=== PATIENT | female | born 1980 | race Hispanic/Latino ===

== ENCOUNTER 2017-04-21 09:28 | Emergency (ER) | payer MEDICAID ==
--- NOTE | 2017-04-21 13:03 | OBHP ---
Datetime: 04/21/2017 10:59 IP Adm Impression: Term, intrauterine ; No Active Labor IP Chief Complaint Other: Passing of mucuous plug IP Admit Plan: Discharge home Admit Comment, IP Provider: 37 yo female at 37 weeks 3 days gestation by U/S at 7 weeks and SOBIA 05/16 presents with complaints of passing a mucuous-type fluid at 6am this morning which concerned h er for membrane rupture. She reports good movement. Denies contractions, vaginal bleeding, or v aginal gushing of fluid. PNC: Seen by Dr. Salazar with a total of 6 visits throughout her . 34lb weight gain dur ing this , reports having an uncomplicated course. GBs status- pending, scheduled f or appt tomorrow to find out results. PNC labs unremarkable Obstretical Hx: x3, all full term, denies or complications. Denies gestati onal diabetes, preeclampsia, hemorrhage or infection in past pregnancies. Delivery Representative Hx: Pap smear normal (08/26/16) Medical Hx: No chronic illness Surgical Hx: Lap Band surgery (2009), Inner thigh plasty 2014 Social hx: Denies smoking, alcohol, or drug use Rx meds: PNV Allergies: Sufa drugs (rash) ROS: denies CP, SOB, N/V/D/Headache/Dizziness/Burning with urination Triage Vitals: BP 122/65, Afebrile General: Patient seen lying in bed comfortably; NAD HEENT: no facial edema, pallor, jaundice CV: RRR, Normal S1, S2, No murmurs Extremities: Non pitting edema up to knees, Hoffmans negative, no calf tenderness Pulmonary: Clear to auscultation bilaterally; no wheezing Abdomen: Obese, gravid uterus, NT FHR: HR 150, moderate variability, accelerations present, no early, late, or variable decels (yaa gory I) Assessment and Plan: IUP at 37.2 weeks gestation presenting with passage of minimal mucusal type discharge, not in acti ve labor. Pt discharged, will follow up with Dr. Salazar on 04/25. Discussed case with Ob Attending Dr. Vera Harper, PGY1 OB hospitalist addendum: Patient seen and examined by me. Agree with above assessment and plan Labor precautions Pelvic Type - PN: Adequate Extremities - PN: Normal Abdomen - PN: Normal Back - PN: Normal Breast - PN: Normal Lungs - PN: Normal Heart - PN: Normal Thyroid - PN: Normal Neurologic - PN: Normal HEENT - PN: Normal General - PN: Normal FHR - Baseline A Provider: 159 Pool Provider: Negative EGA AdmitDate IP: 37.3 Vital Signs Provider: Reviewed IP Chief Complaint: Suspected ruptured membranes NICHD Variability Prov Fetus A: Moderate 6-25bpm NICHD Accel Fetus A IP Provider: 15X15 FHR Category Provider Fetus A: Category I NICHD Decel Fetus A IP Provider: None Dilatation, Provider: 2 Genitourinary Exam: Normal DTRs - PN: Normal
[2017-04-21 14:54] VITALS: BP 108/59; PULSE 76; RESP 14; TEMP 98.4
== END 2017-04-21 10:30 | disposition home or self-care (01) ==
LOC: H.EROB2 09:28 → H.EROB 09:28 → H.EROB2 10:30
DX: O47.1 False labor at or after 37 completed weeks of gestation (principal); Z3A.37 37 weeks gestation of pregnancy

== ENCOUNTER 2017-04-29 06:37 | Inpatient (IN) | payer MEDICAID ==
[2017-04-29 07:57] VITALS: BMI 48.0
--- NOTE | 2017-04-29 08:41 | OBHP ---
Datetime: 04/29/2017 08:20 IP Adm Impression: Term, intrauterine IP Admit Plan: Observation/Evaluation Admit Comment, IP Provider: Patient is a @ 38.4 wks with suspected leaking of fluid, +FM, no contractions, no vaginal bleeding. 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 Patient evaluated, speculum showed no pooling, nitrazine negative. Pt 4/50/-3 on exam. Unsure if patient is ruptured - will order BPP to evaluate A FI and well being. Will continue monitoring for contractions, FHR = 160 mod brandon, Cat-I. Will re -evaluate Pelvic Type - PN: Adequate Extremities - PN: Normal Abdomen - PN: Normal Back - PN: Normal Breast - PN: Normal Lungs - PN: Normal Heart - PN: Normal Thyroid - PN: Normal Neurologic - PN: Normal HEENT - PN: Normal General - PN: Normal FHR - Baseline A Provider: 160 EGA AdmitDate IP: 38.4 Vital Signs Provider: Reviewed; Within Normal Limits IP Chief Complaint: Suspected ruptured membranes NICHD Variability Prov Fetus A: Moderate 6-25bpm NICHD Accel Fetus A IP Provider: 15X15 NICHD Decel Fetus A IP Provider: None Dilatation, Provider: 4 Effacement, Provider: 50 Station, Provider: -3 Genitourinary Exam: Normal DTRs - PN: Normal
--- NOTE | 2017-04-29 10:17 | US ---
PROCEDURE: Limited obstetrical ultrasound examination HISTORY: BPP, questionable rupture as well COMPARISON: Not available TECHNIQUE: Transabdominal FINDINGS: Limited obstetrical ultrasound examination was performed specifically for evaluation of biophysical profile. The examination demonstrates a single live intrauterine gestation in cephalic presentation. The heart rate is 153 beats per minute. A normal quantity of amniotic fluid is visualized. The amniotic fluid index is 14.3 cm. Normal anterior placenta is identified. The cervix could not be visualized at this time. The relationship of the placenta to cervix is not demonstrated at this time. biometry is not performed at this time. biophysical profile examination yields a score of 8 out of 8. IMPRESSION: Single live intrauterine gestation. Cephalic presentation. heart rate 153 beats per minute. age determination not made at this time at the request of the referring physician. Anterior placenta. Relationship of placenta to cervix not established at this time. Biophysical profile score 8 out of 8.
[2017-04-29] MEDS: Lactated Ringer's 1,000 ML IV SCH ×2 (12:30→20:30)
--- NOTE | 2017-04-29 14:43 | OBADHP ---
Datetime: 04/29/2017 08:20 Admit Comment, IP Provider: 37 y/u female at 38.6 weeks gestation confirmed by a 7 week U/S and consistent with LMP presents with loss of vaginal fluid at 6am this morning. Pt was concerned her me mbranes might of ruptured so she came to be evaluated. Denies contractions but reports mild lower abd ominal cramping that resolved spontaneously this morning. Denies vaginal bleeding. Reports good movement. PNC: Recieving care [place] with Dr. Salazar. PNC course and labs unremarkable. GBS status negative as per patient but no documentation to support this. Blood TYpe: B+ HIV neg RPR nonreactive G/C neg Rubella N/A Hep B neg Tdap N/A OBHx: 3 , term, no complications, 1 TOP, 1 SAB 1st trimester Medical Hx: None Surgical Hx: Inner Thigh Plasty, Liposuction, Lab band Meds: PNV Allergies: SULFA (rash) Social: Denies alcohol, smoking, or drugs Vitals: 125/76, HR 87, afebrile, Pain Scale=0 Physical Exam: General: NAD Cardiac: RRR, no murmurs Pulm: Clear to Auscultation BL Abdomen: Gravid, Non tender Extremities: +2-3 pitting edema up to knees, No calf tenderness Speculum: no pooling, Nitrazine negative FHR: 150's, moderate variability, accelerations, no deceleration Assessment: IUP at 38 weeks, uncomplicated , reporting loss of fluid. Patient not in active labor as she is not reporting contractions. Evaluate for ROM. -F/U BPP to assess JULIÁN Casper Harper PGY1 Addendum: Patient reexamined. Small amount of fluid seen from cervical os. Cervix 4-5 cm, 90% effaced, -1 st ation. Plan to admit patient for management of labor and delivery due to spontaneous rupture of membr anes. Plan discussed with patient and all patient questions answered. Pelvic Type - PN: Adequate Extremities - PN: Normal Abdomen - PN: Normal Back - PN: Normal Breast - PN: Normal Lungs - PN: Normal Heart - PN: Normal Thyroid - PN: Normal Neurologic - PN: Normal HEENT - PN: Normal General - PN: Normal FHR - Baseline A Provider: 160 Vital Signs Provider: Reviewed; Within Normal Limits IP Chief Complaint: Suspected ruptured membranes NICHD Variability Prov Fetus A: Moderate 6-25bpm NICHD Accel Fetus A IP Provider: 15X15 NICHD Decel Fetus A IP Provider: None Dilatation, Provider: 4 Effacement, Provider: 50 Station, Provider: -3 Genitourinary Exam: Normal DTRs - PN: Normal EGA AdmitDate IP: 38.4 IP Adm Impression: Term, intrauterine IP Admit Plan: Observation/Evaluation Datetime: 04/21/2017 10:59 IP Chief Complaint Other: Passing of mucuous plug Pool Provider: Negative FHR Category Provider Fetus A: Category I
[2017-04-29] MEDS ORDERED: Bupivacaine HCl 0.25% PF (10 ml) Inj ONE (15:46)
[2017-04-29] MEDS ORDERED: Fentanyl/Bupivacaine HCl 250 ML EPI ONE (15:46)
[2017-04-29 15:48] LABS: BASO # 0.1 K/uL (0.0-0.2); BASO % 0.5 % (0.0-2.0); EOS # 0.3 K/uL (0.0-0.7); EOS % 2.4 % (0.0-4.0); HEMATOCRIT 29.6 % (34.0-47.0); LYMPH # 1.5 K/uL (1.0-4.3); MEAN CELL VOLUME 89.2 fl (81.0-99.0); MEAN CORPUSCULAR HEMOGLOBIN 28.6 pg (27.0-31.0); MEAN PLATELET VOLUME 8.3 fl (7.2-11.7); MONO # 0.5 K/uL (0.0-0.8); MONO % 4.7 % (0.0-10.0); NEUT # 9.1 K/uL (1.8-7.0); NEUT % 79.4 % (50.0-75.0); NRBC % 0.1 % (0.0-0.0); RED CELL DISTRIBUTION WIDTH 14.1 % (11.5-14.5); WHITE BLOOD COUNT 11.5 K/uL (4.8-10.8)
[2017-04-29] MEDS ORDERED: Lidocaine 1% Inj (20ml) ONE (19:22)
--- NOTE | 2017-04-29 20:41 | OBPN ---
Datetime: 04/29/2017 20:37 IP Progress Impression: Normal progression of labor IP Informed Consent Obtain: Vaginal Delivery IP Procedures: Sterile Vag Exam IP Progress Plan: Continue present management; Augmentation Contraction Comments Provider: q2min FHR - Baseline A Provider: 140s IP Progress Note Comment: Patient comfortable status post epidural. Bulging fore bag, AROM light mec onium. Maternal well-being and being reassuring at this time. Continue current management. Vital Signs Provider: Reviewed; Within Normal Limits NICHD Accel Fetus A IP Provider: 15X15 FHR Category Provider Fetus A: Category I NICHD Variability Prov Fetus A: Moderate 6-25bpm Dilatation, Provider: 6 Effacement, Provider: 90 Station, Provider: 0 NICHD Decel Fetus A IP Provider: None Datetime: 04/21/2017 10:59 Pool Provider: Negative
[2017-04-29] MEDS ORDERED: Oxycodone/Acetaminophen 5/325 mg Tab PO PRN ×4 (23:06→23:16)
[2017-04-30 06:08] LABS: BASO # 0.1 K/uL (0.0-0.2); BASO % 0.4 % (0.0-2.0); EOS # 0.3 K/uL (0.0-0.7); EOS % 2.3 % (0.0-4.0); HEMATOCRIT 25.8 % (34.0-47.0); LYMPH # 1.8 K/uL (1.0-4.3); LYMPH % 13.6 % (20.0-40.0); MEAN CELL VOLUME 89.2 fl (81.0-99.0); MEAN CORPUSCULAR HEMOGLOBIN 28.7 pg (27.0-31.0); MEAN CORPUSCULAR HGB CONC 32.2 g/dL (33.0-37.0); MEAN PLATELET VOLUME 8.5 fl (7.2-11.7); MONO # 1.1 K/uL (0.0-0.8); NEUT # 10.1 K/uL (1.8-7.0); NEUT % 75.7 % (50.0-75.0); RED CELL DISTRIBUTION WIDTH 14.3 % (11.5-14.5); WHITE BLOOD COUNT 13.3 K/uL (4.8-10.8)
--- NOTE | 2017-04-30 08:15 | OBPPN ---
Datetime: 04/30/2017 08:10 PP Pain Prov: Within normal limits PP Abdomen/Uterus Prov: Normal PP Lochia Prov: Normal PP Extremities Prov: Normal PP Impression Prov: Normal progression PP Plan Prov: Continue present management PP Progress Note Prov: PPD s/p , doing well, bottle feeding Continue current management Vital Signs Provider PP: Reviewed
--- NOTE | 2017-04-30 08:44 | OBDS ---
DELIVERY PERSONNEL Delivery Doctor: Hina Hopper MD Telecommunications Facility Examiner: Claudia Davenport RN Anesthesiologist: Andres Ma MD MATERNAL INFORMATION Delivery Anesthesia: Local; Epidural Medications in Delivery: Pitocin Estimated Blood Loss (ml): 250 Placenta Cultured: No Maternal Complications: None Provider Comments: Normal spontaneous vaginal delivery. Patient delivered viable infant female with Apgars of 9 and 9 at one and 5 minutes respectively. P lacenta delivered spontaneously. Laceration repaired, as above. Uterus firm and appropriately hemosta tic following delivery. No complications. Patient tolerated repair and delivery well. Estimated blood loss 200 mL LABOR SUMMARY EDC: 05/09/2017 00:00 No. Babies in Womb: 1 Attempted: No Labor Anesthesia: Epidural LABOR INFORMATION Reason for Induction: Not Applicable Onset of Labor: 04/29/2017 17:01 Complete Dilatation: 04/29/2017 21:45 Oxytocin: Augmentation Group B Beta Strep: N/A Antibiotics # of Doses: 0 Steroids Given: None Reason Steroids Not Administered: Not Applicable MEMBRANES Membranes Rupture Method: Artificial Rupture of Membranes: 04/29/2017 20:35 Length of Rupture (hrs): 1.32 Amniotic Fluid Color: Light Meconium Amniotic Fluid Amount: Moderate STAGES OF LABOR Stage 1 hrs: 4 Stage 1 min: 44 Stage 2 hrs: 0 Stage 2 min: 9 Stage 3 hrs: 0 Stage 3 min: 5 Total Time in Labor hrs: 4 Total Time in Labor min: 58 VAGINAL DELIVERY Episiotomy: None Laceration Extension: First Degree Laceration Type: Perineal Laceration Repair: Yes Laceration Repair Note: First-degree midline perineal laceration. Area infiltrated with 1% lidocaine . Laceration repaired with 2. 0 repeat without complication. Patient tolerated well Initial Vag Sponge Count: 15 Final Vag Sponge Count: 15 Initial Vag Sharps Count: 2 Final Vag Sharps Count: 2 Sponge Count Correct: Yes Sharps Count Correct: Yes Count Comment: count correct BABY A INFORMATION Infant Delivery Date/Time: 04/29/2017 21:54 Method of Delivery: Vaginal Born in Route : No : N/A Forceps: N/A Vacuum Extraction: N/A Shoulder Dystocia : No SHOULDER DYSTOCIA BABY A Delivery Date/Time: 04/29/2017 21:54 PRESENTATION/POSITION BABY A Presentation: Cephalic Cephalic Presentation: Vertex PLACENTA INFORMATION BABY A Placenta Delivery Time : 04/29/2017 21:59 Placenta Method of Delivery: Spontaneous Placenta Status: Delivered SCORES BABY A Heart Rate 1 min: >100 bpm Resp Effort 1 min: Good Cry Reflex Irritability 1 min: Cough or Sneeze or Pulls Away Muscle Tone 1 min: Active Motion Color 1 min: Body Speers, Extremities Blue Resuscitation Effort 1 min: Tactile Stimulation SCORE 1 MIN: 9 Heart Rate 5 min: >100 bpm Resp Effort 5 min: Good Cry Reflex Irritability 5 min: Cough or Sneeze or Pulls Away Muscle Tone 5 min: Active Motion Color 5 min: Body Speers, Extremities Blue Resuscitation Effort 5 min: N/A SCORE 5 MIN: 9 INFANT INFORMATION BABY A Gestational Age at Delivery: 38.4 Gestational Status: Term Outcome : Liveborn Condition : Stable Sex: Female IDENTIFICATION/MEDS BABY A ID Band Number: [id number] ID Band Location: Left Leg; Left Arm WEIGHT/LENGTH BABY A Birthweight (gms): 3495 Infant Weight (lb): 7 Infant Weight (oz): 11 CORD INFORMATION BABY A No. Cord Vessels: 3 Nuchal Cord : N/A Nuchal Cord Other: n/a True Knot: n/a Infant Cord pH Baby Arterial: n/a Infant Cord pH Baby Venous: n/a Cord Blood Taken: Yes Suction: Mouth; Nose ASSESSMENT BABY A Infant Complications: None Physical Findings at Delivery: Within Normal Limits Respirations: Appears Normal Windows Security Analyst/ALS Called : No Care By: Dr Garcia/Wily Transferred To: Remains with Mother
[2017-04-30] MEDS ORDERED: Multivitamin With Minerals Tab PO SCH (09:00)
[2017-04-30] MEDS: Multivitamin With Minerals Tab PO SCH (09:00)
[2017-05-01] MEDS: Multivitamin With Minerals Tab PO SCH (09:35)
[2017-05-01 16:37] VITALS: BP 121/76; PULSE 70; RESP 20; TEMP 98.4; O2SAT 100
--- NOTE | 2017-05-02 08:22 | OBDCSUM ---
Datetime: 04/21/2017 10:24 Discharge Instructions, Provider: Routine instructions given Discharge Diagnosis, Provider: Term Delivered Contraception discussed, Prov: No
--- NOTE | 2017-05-02 08:23 | OBPPN ---
Datetime: 05/01/2017 08:18 PP Pain Prov: Within normal limits PP Nausea Prov: Denies PP Flatus Prov: Yes PP Breasts Prov: Normal PP Heart Prov: Normal PP Lungs Prov: Normal PP Abdomen/Uterus Prov: Normal PP Lochia Prov: Normal PP CVA Tenderness Prov: Normal PP Extremities Prov: Normal PP C/S Incision Prov: Not Applicable PP Impression Prov: Normal progression PP Plan Prov: Discharge PP Progress Note Prov: S: Patient denies pain; no complaints. She has not been breast-feeding but ma inly formula feeding. Impression day #2 status post vaginal delivery Plan: routine instructions Benefits of breast-feeding and maternal discussed with patient and reinforced.. IP PP Procedures: None Vital Signs Provider PP: Within Normal Limits
== END 2017-05-01 12:25 | disposition home or self-care (01) | DRG 373 ==
LOC: H.EROB 06:37 → H.EROB2 06:37 → H.L&D 12:27 → H.OB/GYN 23:50
PROVIDERS: ADMIT Obstetrics & Gynecology; ATTEND Obstetrics & Gynecology
PROC: 10E0XZZ Delivery of Products of Conception, External Approach (ICD-10-PCS; principal; 2017-04-29)
PROC: 0HQ9XZZ Repair Perineum Skin, External Approach (ICD-10-PCS; 2017-04-29)
PROC: 4A1HXCZ Monitoring of Products of Conception, Cardiac Rate, External Approach (ICD-10-PCS; 2017-04-29)
DX: O99.844 Bariatric surgery status complicating childbirth (principal); O77.0 Labor and delivery complicated by meconium in amniotic fluid; O70.0 First degree perineal laceration during delivery; Z37.0 Single live birth; Z3A.38 38 weeks gestation of pregnancy